=== PATIENT | female | born 1955 | race Caucasian/White ===

== ENCOUNTER 2016-03-30 16:36 | Inpatient (IN) | payer OTHER ==
[~2016-03-30] VITALS: Ht 157.5 cm; Wt 68.9 kg
[~2016-03-30 16:36] MED LIST: ACID CONTROL150 MG PO; BENADRYL ALLERG25 MG PO; DOCUSATE SODIU100 MG PO; FAMOTIDINE40 MG PO; FEOSOL325 MG PO; FEROSUL325 MG PO; IRON325 M1 PO; METAMUCIL FIBE3.4 GM PO; NEXIUM40 MG PO; SUCRALFATE1 GM/10 ML PO
[2016-03-30 17:12] LABS: CHLORIDE 107 mEq/L (99-109); POTASSIUM 3.9 mEq/L (3.7-5.4); SODIUM 140 mEq/L (136-147)
[2016-03-30 17:13] LABS: GLUCOSE 118 mg/dL (70-99)
[2016-03-30 17:15] LABS: ANION GAP 10 MEQ/L (2-14)
[2016-03-30 17:17] LABS: GFR ESTIMATE (CALCULATED) > 59 mL/min/
[2016-03-30 17:18] LABS: UREA NITROGEN (BUN) 20 mg/dL (9-23)
[2016-03-30 17:51] LABS: HEMATOCRIT 36.7 % (36.0-46.0); HEMATOLOGY COMMENT 1 SMEAR COMPATIBLE; MCH 19.8 PG (29.0-34.0); MCHC 32.7 G/DL (30.0-36.0); MCV 60.6 FL (83-99); PLATELET COUNT 200 K/uL (156-360); RBC DIS.WIDTH-CV 15.8 % (11.8-14.6); RBC DIS.WIDTH-SD 34.5 % (39-53); RED BLOOD COUNT 6.06 M/uL (3.80-5.20); WHITE BLOOD COUNT 9.9 K/uL (4.1-10.2)
[2016-03-30] MEDS ORDERED: NEXIUM 24HR20 MG PO (21:17)
[2016-03-30 21:28] LABS: ADD MIUA? YES; BILIRUBIN NEGATIVE; BLOOD SMALL; COLOR YELLOW ((YELLOW)); GLUCOSE (STRIP) NEGATIVE; KETONES 20; LEUKOCYTES TRACE; NITRITE NEGATIVE; PROTEIN (STRIP) NEGATIVE; SPECIFIC GRAVITY 1.013 (1.000-1.030)
[2016-03-30 21:52] LABS: BACTERIA RARE /HPF; EPITHELIAL CELLS RARE /HPF; HYALINE CASTS 0-5 /LPF; MUCUS 4+ /LPF; UCUL ADDED? NO
[2016-03-30 22:12] VITALS: BP 140/72
[2016-03-31 01:01] VITALS: BP 115/55
[2016-03-31 04:00] VITALS: BP 113/55
[2016-03-31 07:37] VITALS: BP 124/66
[2016-03-31 08:06] LABS: ALKALINE PHOSPHATASE 153 IU/L (3-129); ANION GAP 11 MEQ/L (2-14); CHLORIDE 108 MEQ/L (99-109); GFR ESTIMATE (CALCULATED) > 59 mL/min/; GLUCOSE 153 mg/dL (70-99); POTASSIUM 3.7 MEQ/L (3.7-5.4); SAMPLE HEMOLYSIS CHECK 0; SAMPLE ICTERIC CHECK 0; SAMPLE LIPEMIA CHECK 0; SODIUM 142 MEQ/L (136-147); TOTAL BILIRUBIN 0.7 MG/DL (0.0-1.0); UREA NITROGEN (BUN) 14 mg/dL (9-23)
[2016-03-31 08:22] LABS: EOSINOPHIL (%) 0 % (0-5); HEMATOCRIT 34.7 % (36.0-46.0); IMMATURE GRANULOCYTE (%) 0.2 % (0.0-0.7); LYMPHOCYTE COUNT 0.7 K/uL (1.0-2.8); MCH 19.3 PG (29.0-34.0); MCHC 31.4 G/DL (30.0-36.0); MCV 61.5 FL (83-99); MONOCYTE (%) 1.4 % (3-12); MONOCYTE COUNT 0.1 K/uL (0-0.8); NEUTROPHIL (%) 82.8 % (45-76); NEUTROPHIL COUNT 3.4 K/uL (1.8-6.4); RBC DIS.WIDTH-SD 33.1 % (39-53); RED BLOOD COUNT 5.64 M/uL (3.80-5.20)
[2016-03-31 08:25] LABS: WHITE BLOOD COUNT 4.2 K/uL (4.1-10.2)
[2016-03-31 08:31] LABS: PLAT.SUFFICIENCY ADEQUATE; PLATELET COUNT 202 K/uL (156-360)
[2016-03-31 10:35] VITALS: BP 134/73
[2016-03-31 15:00] VITALS: BP 137/72
[2016-03-31 23:46] VITALS: BP 129/73
[2016-04-01 07:55] VITALS: BP 129/64
[2016-04-01] MEDS ORDERED: PREDNISONE10 MG PO (13:12)
[2016-04-01] MEDS ORDERED: CEFTIN250 MG PO (13:12)
== END 2016-04-01 14:08 | disposition home or self-care (01) | DRG 192 ==
LOC: EME 16:36 → EDOF 21:13 → 2EAST 21:13
PROVIDERS: Internal Medicine
DX: J44.1 Chronic obstructive pulmonary disease with (acute) exacerbation (principal); J44.0 Chronic obstructive pulmonary disease with (acute) lower respiratory infection; J20.9 Acute bronchitis, unspecified; I10 Essential (primary) hypertension; K21.9 Gastro-esophageal reflux disease without esophagitis; F41.9 Anxiety disorder, unspecified; M19.90 Unspecified osteoarthritis, unspecified site; J45.909 Unspecified asthma, uncomplicated; D64.9 Anemia, unspecified; Z87.11 Personal history of peptic ulcer disease
CPT/HCPCS: 71020; 80048; 80053; 81003; 85025; 85027; 93005; 94640; 94640 76; 94799; 99202; 99281; 99285; J0696; J2930; J7030; J7050; J7512